=== PATIENT | female | born 1950 | race Caucasian/White ===

== ENCOUNTER 2016-10-15 07:31 | Day surgery (SDC) | payer OTHER | END 2016-10-15 23:59 | disposition home or self-care (01) | LOC: DMU 07:31 | PROVIDERS: Internal Medicine Gastroenterology | PROC: 4A1B78Z Monitoring of Gastrointestinal Motility, Via Natural or Artificial Opening (ICD-10-PCS; principal; 2016-10-15 09:00) | DX: R13.10 Dysphagia, unspecified (principal); Z88.0 Allergy status to penicillin | CPT/HCPCS: A9270-GY; C1894 ==

== ENCOUNTER 2016-11-22 08:33 | Inpatient (IN) | payer MEDICARE ==
[2016-11-19 16:10] LABS: BASOPHILS 0.3 %; BASOPHILS ABSOLUTE 0.02 10/3/uL (0.0-0.16); EOSINOPHILS 1.3 %; HEMATOCRIT 41.5 % (36.0-48.0); HEMOGLOBIN 13.8 g/dL (12.0-16.0); IMMATURE GRANULOCYTES 0.1 %; IMMATURE GRANULOCYTES ABSOLUTE 0.01 10/3/uL (0.0-0.11); LYMPHOCYTES 28.4 %; LYMPHOCYTES ABSOLUTE 2.26 10/3/uL (0.67-4.30); MEAN CORPUS HGB CONC 33.3 g/dL (32.0-36.0); MEAN CORPUSCULAR HEMOGLOB 30.3 pg (26.0-34.0); MEAN PLATELET VOLUME 9.3 fL (9.2-13.0); MONOCYTES 7.4 %; MONOCYTES ABSOLUTE 0.59 10/3/uL (0.21-1.20); NEUTROPHILS 62.5 %; NEUTROPHILS ABSOLUTE 4.99 10/3/uL (2.02-8.40); PLATELET COUNT 287 10/3/uL (150-400); RBC DISTRIBUTION WIDTH 14.4 % (12.0-16.0); RED CELL COUNT 4.56 10/6/uL (4.0-5.6)
[2016-11-19 16:11] LABS: MANUAL DIFF NO %
[2016-11-19 16:25] LABS: A/G RATIO 0.9 (0.7-1.9); ALBUMIN 3.6 G/DL (3.5-5.0); ALKALINE PHOSPHATASE 90 U/L (45-117); BUN (BLOOD UREA NITROGEN) 13 MG/DL (6-23); CALCIUM, SERUM 9.7 MG/DL (8.5-10.4); CHLORIDE, SERUM 106 MMOL/L (96-112); CO2 (CARBON DIOXIDE) 28 MMOL/L (24-34); CREATININE 0.75 MG/DL (0.55-1.02); GFR AFRICAN AMERICAN 97 ML/MIN (>=60); GFR NON AFRICAN AMERICAN 84 ML/MIN (>=60); GLOBULIN 3.8 G/DL (2.5-4.1); GLUCOSE, SERUM 79 MG/DL (60-99); POTASSIUM, SERUM 3.5 MMOL/L (3.5-5.3); SGOT(AST) 12 U/L (5-40); SGPT(ALT) 14 U/L (5-65); SODIUM, SERUM 144 MMOL/L (135-148); TOTAL BILIRUBIN 0.5 MG/DL (0-1.2); TOTAL PROTEIN 7.4 G/DL (6.0-8.5)
--- NOTE | ~2016-11-22 | OP ---
Record Of Operation [facility] [address] [place]. [address] NAME: AUSTYN ASTORGA : 52 STATUS : ADM IN PAT#: [id number] AGE: 66 ADM/REG DATE : 11/22/16 MR#: [id number] REPORT SERV DATE: 11/22/16 DICTATED BY: JAMIE PEÑA DATE: 11/22/16 REPORT STATUS : Draft TRANSCRIBED BY: MODL DATE: 11/22/16 DATE OF PROCEDURE: 11/22/2016 PREOPERATIVE DIAGNOSIS: Achalasia. POSTOPERATIVE DIAGNOSIS: Achalasia. PROCEDURE: 1. Laparoscopic Heller cardioesophageal myotomy with JAKE, partial anterior fundoplication. 2. Esophagogastroscopy. SURGEON: Jamie Peña M.D. RESIDENT SURGEON: Nico Butts M.D. ANESTHESIA: General. ESTIMATED BLOOD LOSS: 10 mL. DETAILS OF PROCEDURE: The patient arrived in the operating suite and placed on the table in supine position. General anesthesia was obtained via an endotracheal tube. The patient was placed in modified lithotomy. The abdomen was prepped and draped in a sterile manner. 0.5% Marcaine with epinephrine was infiltrated over the supraumbilical left rectus muscle, where a small incision was performed. A 10 mm blunt trocar was inserted under laparoscopic visualization. Peritoneal cavity insufflated with CO2 gas to 15 mmHg pressure. The patient was placed in reverse Trendelenburg. Under laparoscopic visualization, blunt trocars were inserted in the bilateral anterior axillary lines, left subxiphoid, and right paramedian regions. Instruments were introduced. The lateral segment of the left lobe of liver was retracted anteriorly with self-retaining retractor. There was no evidence of hiatal hernia. Dissection proceeded along the gastrohepatic omentum with Harmonic gia to medial edge of the right callie and the esophageal hiatus extending over to the anterior medial aspect of the left callie and essentially a 9 o'clock to 3 o'clock position. With the Harmonic gia, freed the esophagus anteriorly. The anterior vagus nerve was identified and protected. Attention was turned to the greater curvature of the stomach. The gastrosplenic ligament, short gastric vessels contained therein were divided with the Harmonic gia allowing the floppy fundus to be mobilized. The anterior vagus nerve was then encircled with a vessel loop and retracted to the right. The gastroscope was then introduced. There was a dilated esophagus and much of old food and near the GE junction significant insufflation was required to pass the scope into the stomach. The stomach was then suctioned free of fluid and withdrawn using transillumination and blunt dissection in the distal esophagus just proximal to the GE junction, longitudinal and then transverse fibers were stripped away gaining access to the submucosal plane very clearly using blunt dissection and the Harmonic gia proximally. The muscle fibers remaining to the left of the anterior vagus nerve were then stripped away up to the esophageal hiatus approximately 3-4 cm proximally again using transillumination and hook cautery distally. The transverse muscle fibers were divided 2 to 3 cm onto the cardia of the stomach anteriorly to where the scope clearly fell into the Record Of Operation [place] [id number] [facility] [place]. [address] NAME: AUSTYN ASTORGA : 52 STATUS : ADM IN [facility]#: [id number] AGE: 66 ADM/REG DATE : 11/22/16 MR#: [id number] REPORT SERV DATE: 11/22/16 DICTATED BY: JAMIE PEÑA DATE: 11/22/16 REPORT STATUS : Draft TRANSCRIBED BY: AMARIS DATE: 11/22/16 stomach without any need for insufflation. There was no resistance, whatsoever. Scope was then placed in the antrum distally and fluid and air was suctioned free leaving the scope to act as somewhat of a bougie. Anterior fundoplication was then performed after the vessel loop was removed encircling the anterior vagus nerve by approximating the stomach to the cut edge of the right callie with 2-0 Ethibond sutures in the more lateral fundus overlapping anteriorly to the anterior right callie with two additional stitches. Scope was then withdrawn. Liver retractor was removed. Peritoneal cavity was desufflated. Skin closure at all sites performed with subcuticular 4-0 Monocryl. Sterile dressing were applied. The patient was awakened, extubated, and taken to PACU. /AMARIS Jamie Peña M.D. / [id number] CC: Jamie Peña M.D.
[2016-11-23] MEDS ORDERED: PCET PO (09:07)
== END 2016-11-23 13:36 | disposition home or self-care (01) | DRG 328 ==
LOC: SDC/OF 08:33 → PACU 14:30 → 5SO 15:26
PROVIDERS: Specialist
PROC: 0DV44ZZ Restriction of Esophagogastric Junction, Percutaneous Endoscopic Approach (ICD-10-PCS; 2016-11-22)
PROC: 0D844ZZ Division of Esophagogastric Junction, Percutaneous Endoscopic Approach (ICD-10-PCS; principal; 2016-11-22 10:15)
DX: K22.0 Achalasia of cardia (principal); R13.10 Dysphagia, unspecified; Z80.3 Family history of malignant neoplasm of breast; Z80.0 Family history of malignant neoplasm of digestive organs; Z82.49 Family history of ischemic heart disease and other diseases of the circulatory system; Z80.1 Family history of malignant neoplasm of trachea, bronchus and lung; Z88.0 Allergy status to penicillin; Z79.899 Other long term (current) drug therapy
CPT/HCPCS: 80053; 85025; 93005; A9270-GY; J0330; J0690; J1885; J2250; J2370; J2405; J2710; J3010